=== PATIENT | male | born 1965 | race Hispanic/Latino ===

== ENCOUNTER 2016-08-22 09:51 | Emergency (ER) | payer OTHER ==
[2016-08-22 10:07] VITALS: BP 121/76; PULSE 83; RESP 16; TEMP 98; O2SAT 97
[2016-08-22 11:10] LABS: BASO % 0.2 % (0.0-2.0); EOS % 0.2 % (0.0-4.0); HEMATOCRIT 39.7 % (35.0-51.0); LYMPH # 1.1 K/uL (1.0-4.3); LYMPH % 8.4 % (20.0-40.0); MEAN CELL VOLUME 89.7 fl (80.0-94.0); MEAN CORPUSCULAR HEMOGLOBIN 29.1 pg (27.0-31.0); MEAN CORPUSCULAR HGB CONC 32.4 g/dL (33.0-37.0); MEAN PLATELET VOLUME 7.5 fl (7.2-11.7); MONO # 1.4 K/uL (0.0-0.8); MONO % 11.1 % (0.0-10.0); NEUT % 80.1 % (50.0-75.0); PLATELET COUNT 309 K/uL (130-400); RED CELL DISTRIBUTION WIDTH 14.3 % (11.5-14.5); WHITE BLOOD COUNT 12.5 K/uL (4.8-10.8)
[2016-08-22 11:12] LABS: RBC URINE 2 /hpf (0-3); URINE BACTERIA RARE (<OCC); URINE BILIRUBIN NEGATIVE (NEGATIVE); URINE BLOOD NEGATIVE (NEGATIVE); URINE COLOR YELLOW (YELLOW); URINE GLUCOSE (UA) NEG (Normal); URINE KETONE NEGATIVE (NEGATIVE); URINE LEUKOCYTE ESTERASE NEG Leu/uL (Negative); URINE PROTEIN NEGATIVE (NEGATIVE); URINE UROBILINOGEN 0.2-1.0 mg/dL (0.2-1.0); WBC URINE 1 /hpf (0-5)
[2016-08-22 11:18] LABS: BLOOD UREA NITROGEN 11 mg/dl (9-20); CALCIUM 9.6 mg/dL (8.4-10.2); CARBON DIOXIDE 27 mmol/L (22-30); CHLORIDE 102 mmol/L (98-107); GFR AFRICAN-AMERICAN > 60; GLUCOSE,RANDOM 111 mg/dL (75-110); POTASSIUM 4.9 MMOL/L (3.6-5.0); SODIUM 140 mmol/l (132-148)
--- NOTE | 2016-08-22 11:42 | ED PDOC ---
Lower Extremity Pain/Injury Time Seen by Provider: 08/22/16 10:17 Chief Complaint (Nursing): Lower Extremity Problem/Injury History Per: Patient History/Exam Limitations: no limitations Onset/Duration Of Symptoms: Days (4) Severity: Moderate Pain Scale Rating Of: 4 Additional History Per: Patient Additional Complaint(s): Pt co bilateral ankle pain and swelling for 4 days. NO trauma. Reports left wrist pain and right knee pain as well. Started at the same time. No fever. Reports dysuria with cloudy urine for 1 week. No back pain. Past Medical History Reviewed: Historical Data, Nursing Documentation, Vital Signs Vital Signs: Last Vital Signs Temp 98 F 08/22/16 10:04 Pulse 83 08/22/16 10:04 Resp 16 08/22/16 10:04 BP 121/76 08/22/16 10:04 Pulse Ox 97 08/22/16 10:04 - Medical History PMH: No Chronic Diseases - Surgical History Surgical History: No Surg Hx - Family History Family History: States: No Known Family Hx - Home Medications Home Medications: Ambulatory Orders Medication Instructions Recorded Naproxen 500 mg PO BID #30 tab 08/22/16 Nitrofurantoin Macrocrystals 100 mg PO BID #14 cap 08/22/16 [Macrobid] - Allergies Allergies/Adverse Reactions: Allergies Allergy/AdvReac Type Severity Reaction Status Date / Time No Known Allergies Allergy Verified 08/22/16 10:04 Wells Criteria for PE - Wells Criteria for Pulmonary Embolism Clinical Signs and Symptoms of DVT: No P.E is #1 Diagnosis, or Equally Likely: No Heart Rate >100: No Immobilization at least 3 days;Surgery previous 4 weeks: No Previous, objectively diagnosed PE or DVT: No Hemoptysis: No Malignancy w/treatment within 6 months, or palliative: No Total Score: 0 Review of Systems ROS Statement: Except As Marked, All Systems Reviewed And Found Negative Constitutional: Negative for: Fever Cardiovascular: Negative for: Chest Pain Respiratory: Negative for: Cough, Shortness of Breath Gastrointestinal: Negative for: Abdominal Pain Neurological: Negative for: Headache Physical Exam - Reviewed Nursing Documentation Reviewed: Yes Vital Signs Reviewed: Yes - Physical Exam Appears: Positive for: Well, Non-toxic, No Acute Distress Head Exam: Positive for: ATRAUMATIC, NORMAL INSPECTION Skin: Positive for: Normal Color, Warm, Dry Eye Exam: Positive for: EOMI Neck: Positive for: Painless ROM, Supple Cardiovascular/Chest: Positive for: Regular Rate, Rhythm. Negative for: Tachycardia Respiratory: Positive for: Normal Breath Sounds. Negative for: Wheezing, Respiratory Distress Gastrointestinal/Abdominal: Positive for: Soft. Negative for: Tenderness Extremity: Positive for: Normal ROM, Other (right and left ankle swelling. non tender no redness. ) Neurologic/Psych: Positive for: Alert, Oriented - Laboratory Results Result Diagrams: 08/22/16 11:00 08/22/16 08:19 - ECG O2 Sat by Pulse Oximetry: 97 Medical Decision Making Medical Decision Making: Impression Joint swelling and pain Diff include arthritis, Mihaela syndrome, UTI, nephritis Plan Labs Toradol 30 mg IM Reassess Disposition - Clinical Impression Clinical Impression: Arthralgia, Dysuria - Patient ED Disposition Is Patient to be Admitted: No Doctor Will See Patient In The: Office Counseled Patient/Family Regarding: Studies Performed, Diagnosis, Need For Followup - Disposition [facility] Disposition: Routine/Home Disposition Time: 13:42 Condition: GOOD Additional Instructions: Follow up with your PCP in 2- 3 days. You will receive call in 2-3 days for follow up and for urine culture results. Prescriptions: Naproxen 500 mg PO BID #30 tab Nitrofurantoin Macrocrystals [Macrobid] 100 mg PO BID #14 cap Instructions: Dysuria (ED), Arthralgia (ED) Forms: [employer] ([employer])
[2016-08-22 11:45] LABS: NEUTROPHIL 83 % (42-75); REACTIVE LYMPHOCYTES 3 % (0-0); TOTAL CELLS COUNTED 100
[2016-08-22 12:38] LABS: ERYTHROCYTE SEDIMENTATION RATE 45 mm/hr (0-20)
== END 2016-08-22 14:23 | disposition home or self-care (01) ==
LOC: H.ER 09:51
DX: B96.29 Other Escherichia coli [E. coli] as the cause of diseases classified elsewhere (principal); M25.50 Pain in unspecified joint

== ENCOUNTER 2016-08-25 15:54 | Emergency (ER) | payer OTHER ==
[2016-08-25 16:00] VITALS: BP 127/72; PULSE 72; RESP 20; TEMP 98.4; O2SAT 98
--- NOTE | 2016-08-25 16:31 | ED PDOC ---
Lower Extremity Pain/Injury Time Seen by Provider: 08/25/16 15:54 Chief Complaint (Nursing): Lower Extremity Problem/Injury Chief Complaint (Provider): Lower Extremity Problem/Injury History Per: Patient History/Exam Limitations: no limitations Onset/Duration Of Symptoms: Days Current Symptoms Are (Timing): Still Present Additional Complaint(s): Robin Alva is a 51 year old male who presents to the emergency department for complaints of swelling and stiffness to his ankles and wrists bilaterally associated with fevers, chills, sweats, and fatigue. Denies any penile discharge , penile swelling, back pain or lesions. Patient stated that symptoms began after having unprotected sex with long-term partner and that some fecal matter may have went into urethra on 08/31/16. Patient was seen in [facility] on 08/22/16 for dysuria, dark urine, back pain, dysuria, urine frequency, and trickling of urine in which findings were positive for Ecoli infection. Previous bloodwork showed elevated WBC of 1235 and elevated ESR. Patient was discharged home with a prescription for Macrobid on last ED visit. PMD: Past Medical History Reviewed: Historical Data, Nursing Documentation, Vital Signs Vital Signs: Last Vital Signs Temp 98.4 F 08/25/16 15:58 Pulse 72 08/25/16 15:58 Resp 20 08/25/16 15:58 BP 127/72 08/25/16 15:58 Pulse Ox 98 08/25/16 15:58 - Family History Family History: States: No Known Family Hx - Social History Current smoker - smoking cessation education provided: No Alcohol: Occasional Drugs: Denies - Home Medications Home Medications: Ambulatory Orders Medication Instructions Recorded Naproxen 500 mg PO BID #30 tab 08/22/16 Nitrofurantoin Macrocrystals 100 mg PO BID #14 cap 08/22/16 [Macrobid] Ciprofloxacin [Cipro] 250 mg PO BID #14 tab 08/25/16 Methylprednisolone [Medrol Dose 4 mg PO DAILY #21 mg 08/25/16 Pack (21 tabs)] - Allergies Allergies/Adverse Reactions: Allergies Allergy/AdvReac Type Severity Reaction Status Date / Time No Known Allergies Allergy Verified 08/25/16 15:57 Review of Systems ROS Statement: Except As Marked, All Systems Reviewed And Found Negative Constitutional: Positive for: Fever, Chills, Sweats Genitourinary Male: Negative for: Penile Discharge, Penile Pain (or swelling) Musculoskeletal: Positive for: Other (ankle and B/L wrists swelling and stiffness). Negative for: Back Pain Skin: Negative for: Lesions (on penis) Neurological: Positive for: Other (fatigue) Physical Exam - Reviewed Nursing Documentation Reviewed: Yes Vital Signs Reviewed: Yes - Physical Exam Appears: Positive for: Well, Non-toxic, No Acute Distress Head Exam: Positive for: ATRAUMATIC, NORMAL INSPECTION, NORMOCEPHALIC Skin: Positive for: Normal Color, Warm, Dry Neck: Positive for: Normal, Painless ROM, Supple Cardiovascular/Chest: Positive for: Regular Rate, Rhythm. Negative for: Murmur Respiratory: Positive for: Normal Breath Sounds. Negative for: Crackles, Rales , Rhonchi, Stridor Gastrointestinal/Abdominal: Positive for: Tenderness (pelvis and abdomen) Male Genital Exam: Positive for: normal genitalia, normal prostate Back: Positive for: Normal Inspection. Negative for: L CVA Tenderness, R CVA Tenderness Extremity: Positive for: Normal ROM, Pedal Edema (B/L ankles appreciated), Other (wrists appear within normal limits) DTR - Ankle (R): 1+ DTR - Ankle (L): 1+ Neurologic/Psych: Positive for: Alert, Oriented - Laboratory Results Result Diagrams: 08/25/16 16:41 08/25/16 16:41 - ECG O2 Sat by Pulse Oximetry: 98 (RA) Pulse Ox Interpretation: Normal Medical Decision Making Medical Decision Making: Initial Impression: Bee's Syndrome Initial Plan: * Labs * Creatine phosphokinase * Erthrocyte sedimentation rate * Chlamydia/GC * Rocephin 1gm IVPB * Blood culture * Urine culture * Reevaluate * send out: GC swab and HLA-B27 antigen for r/o reactive Arthritis. --Dr. Douglas Engle III is aware of case. PT with improved WBC, normal CPK . however ESR has increased. 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 Pt advised to discontinue macrobid and now start on cipro. [facility] for f/u care and to monitor symptoms, give labs results. pt understands and advised if worsened to return to ED Scribe Attestation: Documented by Sugar García, acting as a scribe for Abigail Joyce PA-C. Provider Scribe Attestation: All medical record entries made by the Scribe were at my direction and personally dictated by me. I have reviewed the chart and agree that the record accurately reflects my personal performance of the history, physical exam, medical decision making, and the department course for this patient. I have also personally directed, reviewed, and agree with the discharge instructions and disposition. Disposition - Clinical Impression Clinical Impression: Arthralgia, Bee's syndrome - Patient ED Disposition Is Patient to be Admitted: No Counseled Patient/Family Regarding: Studies Performed, Diagnosis, Need For Followup - Disposition Referrals: [facility] [Outside] Disposition: Routine/Home Disposition Time: 18:00 Condition: STABLE Prescriptions: Ciprofloxacin [Cipro] 250 mg PO BID #14 tab Methylprednisolone [Medrol Dose Pack (21 tabs)] 4 mg PO DAILY #21 mg Instructions: Swollen Joint (ED) Forms: [employer] ([place])
[2016-08-25 16:55] LABS: BASO # 0.1 K/uL (0.0-0.2); BASO % 0.8 % (0.0-2.0); EOS # 0.2 K/uL (0.0-0.7); EOS % 2.2 % (0.0-4.0); HEMATOCRIT 32.6 % (35.0-51.0); LYMPH # 1.2 K/uL (1.0-4.3); LYMPH % 14.9 % (20.0-40.0); MEAN CELL VOLUME 88.7 fl (80.0-94.0); MEAN CORPUSCULAR HEMOGLOBIN 29.7 pg (27.0-31.0); MEAN CORPUSCULAR HGB CONC 33.4 g/dL (33.0-37.0); MEAN PLATELET VOLUME 7.6 fl (7.2-11.7); MONO # 0.9 K/uL (0.0-0.8); MONO % 10.8 % (0.0-10.0); NEUT % 71.3 % (50.0-75.0); RED CELL DISTRIBUTION WIDTH 13.8 % (11.5-14.5); WHITE BLOOD COUNT 8.4 K/uL (4.8-10.8)
[2016-08-25 17:13] LABS: ALB/GLOB RATIO 1.3 (1.0-2.1); ALKALINE PHOSPHATASE 79 U/L (38-126); ALT/SGPT 39 U/L (21-72); AST/SGOT 38 U/L (17-59); BILIRUBIN,TOTAL 0.3 mg/dl (0.2-1.3); BLOOD UREA NITROGEN 14 mg/dl (9-20); CALCIUM 9.5 mg/dL (8.4-10.2); CARBON DIOXIDE 30 mmol/L (22-30); CHLORIDE 102 mmol/L (98-107); GFR AFRICAN-AMERICAN > 60; GLUCOSE,RANDOM 95 mg/dL (75-110); POTASSIUM 4.3 MMOL/L (3.6-5.0); SODIUM 139 mmol/l (132-148); TOTAL PROTEIN 7.2 G/DL (6.3-8.2)
[2016-08-27 05:01] LABS: HLA-B27 ANTIGEN Positive (Negative)
== END 2016-08-25 18:06 | disposition home or self-care (01) ==
LOC: H.ER 15:54
DX: M25.50 Pain in unspecified joint (principal); M02.30 Reiter's disease, unspecified site